=== PATIENT | female | born 1940 | race Caucasian/White ===

== ENCOUNTER 2024-07-04 23:34 | Inpatient (IN) | payer MEDICARE, OTHER ==
[~2024-07-04] VITALS: Ht 149.9 cm; Wt 41.6 kg
[2024-07-04] MEDS ORDERED: INSULIN IV RATE CHANGE DOCUMENTATION ML/HR XX SCH (23:50)
[2024-07-05] MEDS: UNRESOLVED CLARIFICATION ENTRY XX STA (00:27)
[2024-07-05 00:35] LABS: VENOUS BASE EXCESS -13.5 (-2.0-2.0); VENOUS O2 SATURATION 81.4 % (60.0-80.0); VENOUS PARTIAL PRESSURE CO2 32.6 mmHg (38.0-50.0); VENOUS PARTIAL PRESSURE O2 48.3 mmHg (30.0-50.0); VENOUS PH 7.219 UNITS (7.330-7.430); VENOUS STANDARD HCO3 13.9 MMOL/L
[2024-07-05] MEDS: NS (Normal Saline) 0.9% 1,000 ML IV SCH (00:47)
[2024-07-05] MEDS: INSULIN REGULAR IN 0.9 % NACL 100 UNIT in IV 1 EA IV SCH ×2 (00:48→08:53)
[2024-07-05 01:07] LABS: BLOOD UREA NITROGEN 50 MG/DL (9-23); CALCIUM LEVEL 9.5 MG/DL (8.3-10.6); CARBON DIOXIDE LEVEL 14 MMOL/L (20-31); CHLORIDE LEVEL 109 MMOL/L (98-107); CREATININE FOR GFR 1.06 MG/DL (0.55-1.30); GLOMERULAR FILTRATION RATE 52.5 (>32); GLUCOSE, FASTING 333 MG/DL (74-106); POTASSIUM SERUM 4.4 MMOL/L (3.5-5.1); SODIUM LEVEL 151 MMOL/L (136-145)
[2024-07-05 01:19] LABS: ACETONE/KETONE > 4.50 MMOL/L (0.02-0.27)
[2024-07-05 02:09] LABS: OSMOLALITY SERUM 359 MOSM/KG (280-301)
[2024-07-05 02:58] LABS: VENOUS BASE EXCESS -9.5 (-2.0-2.0); VENOUS HCO3 15.9 MMOL/L (23.0-27.0); VENOUS O2 SATURATION 89.3 % (60.0-80.0); VENOUS PARTIAL PRESSURE CO2 33.3 mmHg (38.0-50.0); VENOUS PARTIAL PRESSURE O2 53.9 mmHg (30.0-50.0); VENOUS PH 7.296 UNITS (7.330-7.430); VENOUS STANDARD HCO3 16.9 MMOL/L; VENOUS TOTAL CO2 16.9 MMOL/L (24.0-28.0)
[2024-07-05 03:08] LABS: HEMATOCRIT 43.6 % (36.0-47.0); HEMOGLOBIN 13.6 g/dl (12.0-15.5); MEAN CORPUSCULAR HEMOGLOBIN 28.9 pg (27.0-33.0); MEAN CORPUSCULAR HGB CONC 31.2 g/dl (32.0-36.5); MEAN CORPUSCULAR VOLUME 92.6 fl (80.0-96.0); PLATELET COUNT, AUTOMATED 431 10^3/uL (150-450); RED BLOOD COUNT 4.71 10^6/uL (4.00-5.40)
[2024-07-05 03:11] LABS: WHITE BLOOD COUNT 30.2 10^3/uL (4.0-10.0)
[2024-07-05 03:19] LABS: APPEARANCE, URINE CLEAR (CLEAR); BACTERIA, URINE AUTO NEGATIVE (NEGATIVE); BILIRUBIN, URINE AUTO NEGATIVE (NEGATIVE); BLOOD, URINE BLOOD NEGATIVE (NEGATIVE); COLOR, URINE YELLOW (YELLOW); GLUCOSE, URINE (UA) AUTO 3+ mg/dL (NEGATIVE); KETONE, URINE AUTO 2+ mg/dL (NEGATIVE); LEUKOCYTE ESTERASE, URINE AUTO NEGATIVE (NEGATIVE); MUCUS, URINE SMALL (NEGATIVE); NITRITE, URINE AUTO NEGATIVE (NEGATIVE); PROTEIN, URINE AUTO 1+ mg/dL (NEGATIVE); RBC, URINE AUTO 0 /HPF (0-3); SPECIFIC GRAVITY URINE AUTO 1.026 (1.002-1.035); SQUAMOUS EPITHELIAL CELL UR AU 0 /HPF (0-6); UROBILINOGEN, URINE AUTO 0.2 mg/dL (0.0-2.0); WBC, URINE AUTO 1 /HPF (0-3)
[2024-07-05] MEDS ORDERED: MAALOX 30 ML SUSP *UDC PO PRN (03:25)
[2024-07-05] MEDS ORDERED: MOM 30ML SUSPENSION UDC PO PRN (03:25)
[2024-07-05 03:34] LABS: BLOOD UREA NITROGEN 47 MG/DL (9-23); CALCIUM LEVEL 9.3 MG/DL (8.3-10.6); CARBON DIOXIDE LEVEL 16 MMOL/L (20-31); CHLORIDE LEVEL 112 MMOL/L (98-107); CREATININE FOR GFR 0.93 MG/DL (0.55-1.30); GLOMERULAR FILTRATION RATE 61.4 (>32); GLUCOSE, FASTING 236 MG/DL (74-106); PHOSPHORUS LEVEL 3.1 MG/DL (2.4-5.1); POTASSIUM SERUM 3.9 MMOL/L (3.5-5.1); SODIUM LEVEL 153 MMOL/L (136-145)
[2024-07-05 03:45] LABS: PROCALCITONIN 0.59 ng/ml
[2024-07-05 03:45] LABS: PROCALCITONIN 0.58 ng/ml
[2024-07-05 03:47] LABS: ACETONE/KETONE > 4.50 MMOL/L (0.02-0.27)
[2024-07-05] MEDS: INSULIN LISPRO (NovoLOG) PER UNIT SC ONE ×2 (03:53→06:26)
[2024-07-05] MEDS: KCL 10MEQ/100ML SWI (KRUN) 10 MEQ in IV 1 EA IV ONE (03:53)
[2024-07-05 04:48] VITALS: BP 113/78; TEMP 97; O2SAT 96
[2024-07-05] MEDS: GLYCERIN ADULT SUPP PR ONE (06:11)
[2024-07-05] MEDS: KCL 10MEQ IN D5/0.45NS 1000ML 1,000 ML IV SCH (06:11)
[2024-07-05 06:24] LABS: HEMATOCRIT 39.3 % (36.0-47.0); HEMOGLOBIN 12.4 g/dl (12.0-15.5); MEAN CORPUSCULAR HEMOGLOBIN 29.1 pg (27.0-33.0); MEAN CORPUSCULAR HGB CONC 31.6 g/dl (32.0-36.5); MEAN CORPUSCULAR VOLUME 92.3 fl (80.0-96.0); PLATELET COUNT, AUTOMATED 404 10^3/uL (150-450); RED BLOOD COUNT 4.26 10^6/uL (4.00-5.40); WHITE BLOOD COUNT 27.8 10^3/uL (4.0-10.0)
[2024-07-05 06:43] LABS: OSMOLALITY SERUM 349 MOSM/KG (280-301)
[2024-07-05 06:52] LABS: ACETONE/KETONE > 4.50 MMOL/L (0.02-0.27); BLOOD UREA NITROGEN 46 MG/DL (9-23); CALCIUM LEVEL 9.1 MG/DL (8.3-10.6); CARBON DIOXIDE LEVEL 22 MMOL/L (20-31); CHLORIDE LEVEL 115 MMOL/L (98-107); CREATININE FOR GFR 0.81 MG/DL (0.55-1.30); GLOMERULAR FILTRATION RATE 72.4 (>32); GLUCOSE, FASTING 216 MG/DL (74-106); MAGNESIUM LEVEL 2.9 MG/DL (1.8-2.4); PHOSPHORUS LEVEL 3.4 MG/DL (2.4-5.1); SODIUM LEVEL 156 MMOL/L (136-145)
[2024-07-05 08:00] VITALS: BP 131/78; TEMP 98.1; O2SAT 97
[2024-07-05] MEDS ORDERED: cefTRIAXone SOD 2 GM in DEXTROSE 5% (D5W) ADV/MINI-BAG 50 ML IV SCH ×2 (08:00→08:25)
[2024-07-05] MEDS ORDERED: HumuLIN R (REGULAR) INSULIN (NovoLIN R) **100U/ML** PER UNIT IV ONE (08:00)
[2024-07-05] MEDS ORDERED: D5W/0.2% SODIUM CHLORIDE 1,000 ML IV SCH (08:00)
[2024-07-05] MEDS ORDERED: INSULIN IV RATE CHANGE DOCUMENTATION ML/HR XX SCH (08:15)
[2024-07-05 08:27] LABS: ALBUMIN 2.5 G/DL (3.2-5.2); ALKALINE PHOSPHATASE 162 U/L (35-104); ALT/SGPT 60 U/L (7.0-40); AST/SGOT 39 U/L (<34); BILIRUBIN,DIRECT 0.1 MG/DL (<0.4); BILIRUBIN,TOTAL 0.3 MG/DL (0.3-1.2); TOTAL PROTEIN 5.3 G/DL (5.7-8.2)
[2024-07-05] MEDS: LR 1,000 ML IV SCH (08:45)
[2024-07-05] MEDS: PANTOPRAZOLE 40MG VIAL IV SCH (08:46)
[2024-07-05] MEDS: cefTRIAXone SOD 2 GM in DEXTROSE 5% (D5W) ADV/MINI-BAG 50 ML IV SCH (08:46)
[2024-07-05] MEDS: HEPARIN SOD 5000UNITS/ML 1ML VIAL/SYRINGE SC SCH (08:46)
[2024-07-05] MEDS: DOXYCYCLINE HYCLATE 100MG TABLET PO SCH (08:46)
[2024-07-05] MEDS: DOCUSATE SODIUM 100MG CAPSULE PO SCH (08:46)
[2024-07-05] MEDS: LanTUS (INSULIN GLARGINE INJ) 1 UNITS/0.01 ML SC ONE (08:47)
[2024-07-05 09:32] LABS: HEMOGLOBIN A1c 11.7 % (4.0-6.0)
[2024-07-05] MEDS ORDERED: METO1TAB32 PO (09:35)
[2024-07-05] MEDS ORDERED: FARX1TAB3 PO (09:39)
[2024-07-05] MEDS ORDERED: APAP325T4 PO (09:39)
[2024-07-05] MEDS ORDERED: DULA3PEN SQ (09:39)
[2024-07-05] MEDS ORDERED: LANTINJ4 SC (09:39)
[2024-07-05] MEDS ORDERED: ESOM1CAP20 PO (09:47)
[2024-07-05] MEDS ORDERED: BUSP10TA PO (09:47)
[2024-07-05] MEDS ORDERED: MILKSUS3 PO (09:47)
[2024-07-05] MEDS ORDERED: FURO20TA2 PO (09:47)
[2024-07-05] MEDS ORDERED: MEMA1TAB3 PO (09:47)
[2024-07-05] MEDS ORDERED: MONT10TA97 PO (09:47)
[2024-07-05] MEDS ORDERED: ACET500T15 PO (09:47)
[2024-07-05] MEDS ORDERED: HOME MED LIST COMPLETE! XX SCH (09:50)
[2024-07-05] MEDS ORDERED: FLEET ENEMA PR PRN ×2 (10:15)
[2024-07-05 11:20] LABS: CALCIUM LEVEL 9.1 MG/DL (8.3-10.6); CREATININE FOR GFR 0.67 MG/DL (0.55-1.30); GLOMERULAR FILTRATION RATE 87.2 (>32)
[2024-07-05 12:00] VITALS: BP 130/61; TEMP 97.9; O2SAT 96
[2024-07-05] MEDS: D5W/LR 1,000 ML IV SCH (12:00)
[2024-07-05 15:33] LABS: CALCIUM LEVEL 9.2 MG/DL (8.3-10.6); CREATININE FOR GFR 0.61 MG/DL (0.55-1.30); GLOMERULAR FILTRATION RATE 89.2 (>32); MAGNESIUM LEVEL 2.6 MG/DL (1.8-2.4); PHOSPHORUS LEVEL 2.3 MG/DL (2.4-5.1); POTASSIUM SERUM 4.2 MMOL/L (3.5-5.1)
[2024-07-05 16:00] VITALS: BP 140/60; TEMP 97.7; O2SAT 95
[2024-07-05] MEDS ORDERED: GLUCAGON INJ 1MG VIAL SC PRN (16:00)
[2024-07-05] MEDS ORDERED: GLUCOSE 4 GM CHEW PO PRN (16:00)
[2024-07-05] MEDS ORDERED: DEXTROSE 50% 50ML SYRINGE IV PRN (16:00)
[2024-07-05] MEDS: NS 0.45% 1,000 ML IV SCH (16:14)
[2024-07-05] MEDS: INSULIN LISPRO (NovoLOG) PER UNIT SC SCH ×2 (17:30→20:34)
[2024-07-05 19:02] LABS: CHOLESTEROL RISK RATIO 3.51 (<5); HDL CHOLESTEROL 42.4 MG/DL (>40); LDL CHOLESTEROL 83.6 MG/DL (<100); NON-HDL-C 106.6 MG/DL
[2024-07-05] MEDS: ACETAMINOPHEN 325 MG TAB PO PRN (20:14)
[2024-07-05] MEDS: busPIRone 10 MG TAB PO SCH (20:15)
[2024-07-05] MEDS: SENNA 8.6 MG TAB PO SCH (20:15)
[2024-07-05] MEDS: MONTELUKAST 10 MG TAB PO SCH (20:15)
[2024-07-05 20:28] VITALS: BP 138/65; TEMP 98.6; O2SAT 98
[2024-07-05 21:14] LABS: BLOOD UREA NITROGEN 34 MG/DL (9-23); CARBON DIOXIDE LEVEL 24 MMOL/L (20-31); CHLORIDE LEVEL 118 MMOL/L (98-107); CREATININE FOR GFR 0.49 MG/DL (0.55-1.30); GLOMERULAR FILTRATION RATE > 90.0 (>32); GLUCOSE, FASTING 149 MG/DL (74-106); MAGNESIUM LEVEL 2.5 MG/DL (1.8-2.4); PHOSPHORUS LEVEL 2.5 MG/DL (2.4-5.1); POTASSIUM SERUM 4.6 MMOL/L (3.5-5.1); SODIUM LEVEL 157 MMOL/L (136-145)
[2024-07-06 00:02] VITALS: BP 118/53; TEMP 98.8; O2SAT 97
[2024-07-06] MEDS: HALOPERIDOL LACTATE 5MG/ML VIAL IV ONE (00:17)
[2024-07-06 05:13] VITALS: BP 150/66; TEMP 98.1; O2SAT 97
[2024-07-06 05:32] LABS: HEMATOCRIT 38.4 % (36.0-47.0); HEMOGLOBIN 12.1 g/dl (12.0-15.5); MEAN CORPUSCULAR HEMOGLOBIN 28.6 pg (27.0-33.0); MEAN CORPUSCULAR HGB CONC 31.5 g/dl (32.0-36.5); MEAN CORPUSCULAR VOLUME 90.8 fl (80.0-96.0); PLATELET COUNT, AUTOMATED 336 10^3/uL (150-450); RED BLOOD COUNT 4.23 10^6/uL (4.00-5.40); WHITE BLOOD COUNT 20.5 10^3/uL (4.0-10.0)
[2024-07-06 06:00] LABS: ALBUMIN 2.1 G/DL (3.2-5.2); ALKALINE PHOSPHATASE 140 U/L (35-104); ALT/SGPT 39 U/L (7.0-40); AST/SGOT 36 U/L (<34); BILIRUBIN,TOTAL 0.4 MG/DL (0.3-1.2); BLOOD UREA NITROGEN 28 MG/DL (9-23); CALCIUM LEVEL 8.8 MG/DL (8.3-10.6); CARBON DIOXIDE LEVEL 20 MMOL/L (20-31); CHLORIDE LEVEL 118 MMOL/L (98-107); CREATININE FOR GFR 0.44 MG/DL (0.55-1.30); GLOMERULAR FILTRATION RATE > 90.0 (>32); GLUCOSE, FASTING 150 MG/DL (74-106); MAGNESIUM LEVEL 2.3 MG/DL (1.8-2.4); PHOSPHORUS LEVEL 2.3 MG/DL (2.4-5.1); POTASSIUM SERUM 4.4 MMOL/L (3.5-5.1); SODIUM LEVEL 156 MMOL/L (136-145); TOTAL PROTEIN 4.8 G/DL (5.7-8.2)
[2024-07-06] MEDS: LanTUS (INSULIN GLARGINE INJ) 1 UNITS/0.01 ML SC SCH (08:48)
[2024-07-06] MEDS: MEMANTINE 5MG TABLET PO SCH (08:48)
[2024-07-06] MEDS: BISACODYL 10MG SUPP PR SCH (08:49)
[2024-07-06] MEDS: METOPROLOL SUCC. 25MG *XL* TAB PO SCH (08:49)
[2024-07-06] MEDS ORDERED: DAPAGLIFLOZIN PROPANEDIOL 10MG TABLET PO SCH (09:00)
[2024-07-06 10:50] VITALS: BP 138/63; TEMP 97.7; O2SAT 96
[2024-07-06 12:01] VITALS: BP 133/63; TEMP 97.7; O2SAT 98
[2024-07-06] MEDS: POTASSIUM PHOSPHATE INJ 18 MMOL in D5W 250 ML IV ONE (13:11)
[2024-07-06 20:07] VITALS: BP 132/64; TEMP 98.1; O2SAT 99
[2024-07-06] MEDS: NYSTATIN CREAM 15GM TOP SCH (20:58)
[2024-07-06] MEDS: HALOPERIDOL LACTATE 5MG/ML VIAL IM ONE (22:30)
[2024-07-07 03:48] VITALS: BP 132/60; TEMP 97.9; O2SAT 98
[2024-07-07 06:45] LABS: HEMOGLOBIN 11.4 g/dl (12.0-15.5); MEAN CORPUSCULAR HEMOGLOBIN 28.2 pg (27.0-33.0); MEAN CORPUSCULAR HGB CONC 30.8 g/dl (32.0-36.5); MEAN CORPUSCULAR VOLUME 91.6 fl (80.0-96.0); PLATELET COUNT, AUTOMATED 290 10^3/uL (150-450); RED BLOOD COUNT 4.04 10^6/uL (4.00-5.40); WHITE BLOOD COUNT 20.8 10^3/uL (4.0-10.0)
[2024-07-07 07:07] LABS: ALBUMIN 1.8 G/DL (3.2-5.2); ALKALINE PHOSPHATASE 138 U/L (35-104); ALT/SGPT 44 U/L (7.0-40); AST/SGOT 50 U/L (<34); BILIRUBIN,TOTAL 0.3 MG/DL (0.3-1.2); BLOOD UREA NITROGEN 18 MG/DL (9-23); CALCIUM LEVEL 8.5 MG/DL (8.3-10.6); CARBON DIOXIDE LEVEL 18 MMOL/L (20-31); CHLORIDE LEVEL 115 MMOL/L (98-107); GLOMERULAR FILTRATION RATE > 90.0 (>32); GLUCOSE, FASTING 123 MG/DL (74-106); MAGNESIUM LEVEL 1.9 MG/DL (1.8-2.4); POTASSIUM SERUM 3.8 MMOL/L (3.5-5.1); SODIUM LEVEL 151 MMOL/L (136-145); TOTAL PROTEIN 4.4 G/DL (5.7-8.2)
[2024-07-07] MEDS: PIPERACILLIN/TAZOBACTAM SOD 3.375 GM in DEXTROSE 5% (D5W) ADV/MINI-BAG 50 ML IV SCH (09:07)
[2024-07-07] MEDS: K-PHOS NEUTRAL 250MG TABLET (SOD.PHOSPHATE/POT.PHOSPHATE) PO SCH (10:43)
[2024-07-07 20:18] VITALS: BP 128/64; TEMP 98.4; O2SAT 98
[2024-07-08 04:08] VITALS: BP 153/55; TEMP 97.3; O2SAT 98
[2024-07-08 06:27] LABS: HEMATOCRIT 37.7 % (36.0-47.0); HEMOGLOBIN 11.9 g/dl (12.0-15.5); MEAN CORPUSCULAR HEMOGLOBIN 28.2 pg (27.0-33.0); MEAN CORPUSCULAR HGB CONC 31.6 g/dl (32.0-36.5); MEAN CORPUSCULAR VOLUME 89.3 fl (80.0-96.0); PLATELET COUNT, AUTOMATED 276 10^3/uL (150-450); RED BLOOD COUNT 4.22 10^6/uL (4.00-5.40); WHITE BLOOD COUNT 18.8 10^3/uL (4.0-10.0)
[2024-07-08 07:04] LABS: ALBUMIN 1.8 G/DL (3.2-5.2); ALKALINE PHOSPHATASE 175 U/L (35-104); ALT/SGPT 79 U/L (7.0-40); AST/SGOT 126 U/L (<34); BILIRUBIN,TOTAL 0.4 MG/DL (0.3-1.2); BLOOD UREA NITROGEN 11 MG/DL (9-23); CALCIUM LEVEL 8.3 MG/DL (8.3-10.6); CARBON DIOXIDE LEVEL 24 MMOL/L (20-31); CHLORIDE LEVEL 110 MMOL/L (98-107); CREATININE FOR GFR 0.38 MG/DL (0.55-1.30); GLOMERULAR FILTRATION RATE > 90.0 (>32); GLUCOSE, FASTING 116 MG/DL (74-106); MAGNESIUM LEVEL 1.7 MG/DL (1.8-2.4); PHOSPHORUS LEVEL 1.7 MG/DL (2.4-5.1); POTASSIUM SERUM 2.9 MMOL/L (3.5-5.1); SODIUM LEVEL 146 MMOL/L (136-145); TOTAL PROTEIN 4.3 G/DL (5.7-8.2)
[2024-07-08 08:00] VITALS: BP 154/66; TEMP 97.7; O2SAT 95
[2024-07-08] MEDS: POTASSIUM CHLORIDE 10% LIQ 20MEQ/15ML UDC PO SCH (09:46)
[2024-07-08] MEDS: K-PHOS NEUTRAL 250MG TABLET (SOD.PHOSPHATE/POT.PHOSPHATE) PO SCH (09:48)
[2024-07-08] MEDS: DOCUSATE SODIUM 100MG CAPSULE PO SCH (09:48)
[2024-07-08] MEDS: MAG SULF 1GM/100ML (MAG RUN) 1 GM in IV 1 EA IV SCH (11:03)
[2024-07-08] MEDS: POTASSIUM PHOSPHATE INJ 20 MMOL in D5W 250 ML IV ONE (11:47)
[2024-07-08 12:00] VITALS: BP 139/67; TEMP 97.7; O2SAT 99
[2024-07-08 20:46] VITALS: BP 126/74; TEMP 97.7; O2SAT 94
[2024-07-09 04:00] VITALS: BP 131/72; TEMP 97.9; O2SAT 99
[2024-07-09 05:57] LABS: HEMATOCRIT 37.5 % (36.0-47.0); HEMOGLOBIN 12.1 g/dl (12.0-15.5); MEAN CORPUSCULAR HEMOGLOBIN 28.4 pg (27.0-33.0); MEAN CORPUSCULAR HGB CONC 32.3 g/dl (32.0-36.5); PLATELET COUNT, AUTOMATED 265 10^3/uL (150-450); RED BLOOD COUNT 4.26 10^6/uL (4.00-5.40); WHITE BLOOD COUNT 17.4 10^3/uL (4.0-10.0)
[2024-07-09 06:28] LABS: ALBUMIN 1.9 G/DL (3.2-5.2); ALKALINE PHOSPHATASE 221 U/L (35-104); ALT/SGPT 138 U/L (7.0-40); AST/SGOT 268 U/L (<34); BILIRUBIN,TOTAL 0.5 MG/DL (0.3-1.2); BLOOD UREA NITROGEN 5 MG/DL (9-23); CALCIUM LEVEL 7.9 MG/DL (8.3-10.6); CARBON DIOXIDE LEVEL 26 MMOL/L (20-31); CHLORIDE LEVEL 107 MMOL/L (98-107); CREATININE FOR GFR 0.33 MG/DL (0.55-1.30); GLOMERULAR FILTRATION RATE > 90.0 (>32); GLUCOSE, FASTING 80 MG/DL (74-106); MAGNESIUM LEVEL 1.6 MG/DL (1.8-2.4); PHOSPHORUS LEVEL 2.3 MG/DL (2.4-5.1); POTASSIUM SERUM 3.5 MMOL/L (3.5-5.1); SODIUM LEVEL 145 MMOL/L (136-145); TOTAL PROTEIN 4.6 G/DL (5.7-8.2)
[2024-07-09 08:49] VITALS: BP 135/72
[2024-07-09] MEDS: POTASSIUM CHLORIDE 10% LIQ 20MEQ/15ML UDC PO SCH (08:50)
[2024-07-09] MEDS: AUGMENTIN 875 MG TAB PO SCH (08:51)
[2024-07-09] MEDS: MAG SULF 1GM/100ML (MAG RUN) 1 GM in IV 1 EA IV SCH (08:52)
[2024-07-09] MEDS: DOCUSATE SOD LIQ 100MG/10ML UDC PO SCH (09:00)
[2024-07-09] MEDS: METOPROLOL TART 12.5 MG PER 1/2 TAB PO SCH (11:17)
[2024-07-09 11:45] VITALS: BP 136/71; TEMP 97.7; O2SAT 97
[2024-07-09] MEDS: POTASSIUM PHOSPHATE INJ 30 MMOL in D5W 500 ML IV ONE (12:27)
[2024-07-09 20:00] VITALS: BP 141/60; TEMP 97.9; O2SAT 95
[2024-07-10 04:00] VITALS: BP 133/64; TEMP 98.1; O2SAT 96
[2024-07-10 05:50] LABS: HEMOGLOBIN 12.7 g/dl (12.0-15.5); MEAN CORPUSCULAR HEMOGLOBIN 28.3 pg (27.0-33.0); MEAN CORPUSCULAR HGB CONC 32.6 g/dl (32.0-36.5); MEAN CORPUSCULAR VOLUME 86.9 fl (80.0-96.0); PLATELET COUNT, AUTOMATED 280 10^3/uL (150-450); RED BLOOD COUNT 4.49 10^6/uL (4.00-5.40); WHITE BLOOD COUNT 12.5 10^3/uL (4.0-10.0)
[2024-07-10 06:13] LABS: ALBUMIN 1.9 G/DL (3.2-5.2); ALKALINE PHOSPHATASE 238 U/L (35-104); ALT/SGPT 100 U/L (7.0-40); AST/SGOT 96 U/L (<34); BILIRUBIN,TOTAL 0.4 MG/DL (0.3-1.2); BLOOD UREA NITROGEN < 5 MG/DL (9-23); CALCIUM LEVEL 7.8 MG/DL (8.3-10.6); CARBON DIOXIDE LEVEL 22 MMOL/L (20-31); CHLORIDE LEVEL 103 MMOL/L (98-107); CREATININE FOR GFR 0.32 MG/DL (0.55-1.30); GLOMERULAR FILTRATION RATE > 90.0 (>32); GLUCOSE, FASTING 130 MG/DL (74-106); POTASSIUM SERUM 4.2 MMOL/L (3.5-5.1); SODIUM LEVEL 140 MMOL/L (136-145); TOTAL PROTEIN 4.6 G/DL (5.7-8.2)
[2024-07-10 12:35] VITALS: BP 129/56; TEMP 98.4; O2SAT 98
[2024-07-10] MEDS ORDERED: DOCU5LIQ PO (19:53)
[2024-07-10] MEDS ORDERED: AMOX875T2 PO (19:53)
[2024-07-10] MEDS ORDERED: METO1TAB87 PO (19:53)
[2024-07-10] MEDS ORDERED: POTA20LI16 PO (19:53)
[2024-07-10] MEDS ORDERED: MAGN400T33 PO (19:53)
[2024-07-10] MEDS ORDERED: PHOS1TAB3 PO (19:53)
[2024-07-10 20:09] VITALS: BP 130/55; TEMP 98.8; O2SAT 97
[2024-07-10] MEDS: haloperidoL 0.5 MG TAB PO ONE (22:00)
[2024-07-11] MEDS: ACETAMINOPHEN 325 MG TAB PO PRN (00:12)
[2024-07-11 06:03] VITALS: BP 149/66; TEMP 98.1; O2SAT 98
[2024-07-11 06:20] LABS: HEMATOCRIT 37.5 % (36.0-47.0); HEMOGLOBIN 11.8 g/dl (12.0-15.5); MEAN CORPUSCULAR HEMOGLOBIN 27.7 pg (27.0-33.0); MEAN CORPUSCULAR HGB CONC 31.5 g/dl (32.0-36.5); PLATELET COUNT, AUTOMATED 323 10^3/uL (150-450); RED BLOOD COUNT 4.26 10^6/uL (4.00-5.40); WHITE BLOOD COUNT 14.4 10^3/uL (4.0-10.0)
[2024-07-11 06:47] LABS: ALKALINE PHOSPHATASE 240 U/L (35-104); ALT/SGPT 74 U/L (7.0-40); AST/SGOT 38 U/L (<34); BILIRUBIN,TOTAL 0.4 MG/DL (0.3-1.2); BLOOD UREA NITROGEN 6 MG/DL (9-23); CALCIUM LEVEL 8.1 MG/DL (8.3-10.6); CARBON DIOXIDE LEVEL 25 MMOL/L (20-31); CHLORIDE LEVEL 106 MMOL/L (98-107); CREATININE FOR GFR 0.43 MG/DL (0.55-1.30); GLOMERULAR FILTRATION RATE > 90.0 (>32); GLUCOSE, FASTING 224 MG/DL (74-106); POTASSIUM SERUM 4.2 MMOL/L (3.5-5.1); SODIUM LEVEL 142 MMOL/L (136-145); TOTAL PROTEIN 4.7 G/DL (5.7-8.2)
[2024-07-11 08:50] VITALS: BP 129/58
[2024-07-11 12:30] VITALS: BP 125/96; TEMP 98.8; O2SAT 98
[2024-07-11] MEDS ORDERED: QUEtiapine FUMARATE 12.5 MG HALF-TAB PO SCH (21:00)
== END 2024-07-11 18:11 | DRG 637 ==
LOC: EDBD 23:34 → M ED 23:34 → M ED INP 07-05 03:21 → M ICU 07-05 04:30 → M MSPAV 07-06 10:41
PROVIDERS: ADMIT Student in an Organized Health Care Education/Training Program; ATTEND Internal Medicine
DX: E11.00 Type 2 diabetes mellitus with hyperosmolarity without nonketotic hyperglycemic-hyperosmolar coma (NKHHC) (principal); J18.9 Pneumonia, unspecified organism; J69.0 Pneumonitis due to inhalation of food and vomit; E87.0 Hyperosmolality and hypernatremia; E87.1 Hypo-osmolality and hyponatremia; F03.90 Unspecified dementia, unspecified severity, without behavioral disturbance, psychotic disturbance, mood disturbance, and anxiety; I10 Essential (primary) hypertension; E78.5 Hyperlipidemia, unspecified; K56.41 Fecal impaction; R62.7 Adult failure to thrive; E86.0 Dehydration; E83.39 Other disorders of phosphorus metabolism; E83.41 Hypermagnesemia; R74.01 Elevation of levels of liver transaminase levels; M17.12 Unilateral primary osteoarthritis, left knee; Z66 Do not resuscitate